=== PATIENT | male | born 1965 | race Caucasian/White ===

== ENCOUNTER 2017-03-08 16:52 | Emergency (ER) | payer BC, OTHER ==
[~2017-03-08] VITALS: Ht 180.3 cm; Wt 114.1 kg
[2017-03-08 16:53] VITALS: TEMP 36.9; Ht 180.3 cm; Wt 114.1 kg
[2017-03-08] MEDS ORDERED: [UNRECOGNIZED DRUG - CODE] INJ (17:23)
--- NOTE | 2017-03-08 17:24 | EMERGENCY ROOM VISIT NOTE ---
History First contact with patient: 16:57 Chief Complaint: EYE ASSESSMENT Stated Complaint: CHANGES IN VISION IN LEFT EYE History of Present Illness The patient is a 51 year old male who presents to the Emergency Room via private vehicle with complaints of "changes in vision in left eye". The patient states that he was driving last night, and felt that the vision in his left eye was not as well as was in the past. He also noticed a darkened region , that was colored light brown and circular in nature in the left central axis of vision. It was small in nature. He also feels that when he looks at text on his phone his left eye seems to bend the text. He wears glasses and not contacts. He also believes that at night he sees blue light instead of white light. He states that his vision does appear to be improving, and they're no longer are visual disturbances that are persistent. He notes that now if he closes either is a small [place], but it quickly disappears. He denies any flashes of light in his eyes, speech troubles, weakness, eye pain or trauma. Review of Systems A complete 6-point Review of Systems was discussed with the patient, with pertinent positives and negatives listed in the History of Present Illness. All remaining Review of Systems questions can be considered negative unless otherwise specified. Past Medical/Surgical History No pertinent past medical history. Family History No pertinent family history. Social History Smoking Status: Current Every Day Smoker Social History: Patient is a [employer] professor Current/Historical Medications Scheduled Cetirizine (Zyrtec), 10 MG PO DAILY Golimumab (Simponi), 100 MG INJ MONTHLY Methotrexate (Methotrexate), 15 MG PO WK Omeprazole (Prilosec), 20 MG PO DAILY Tamsulosin Hcl (Flomax), 0.4 MG PO DAILY Scheduled PRN Cromolyn Sodium (Ophth) (Opticrom Oph), 1 DROPS OP QID PRN for ALLERGIC REACTION Allergies Coded Allergies: Aspirin (Verified Allergy, Unknown, sob, 03/08/17) Penicillins (Verified Allergy, Unknown, sob, 03/08/17) Physical Exam Vital Signs Date Time Temp Pulse Resp B/P Pulse Ox O2 Delivery O2 Flow Rate FiO2 03/08/17 17:32 85 18 115/78 95 Room Air 03/08/17 16:53 36.9 97 18 146/89 95 Room Air Right Eye Acuity: 20/40 Left Eye Acuity: 20/25 Physical Exam VITAL SIGNS - Vital signs and nursing notes were reviewed. Vital signs stable, hypertensive. GENERAL -51-year-old male appearing his stated age. Communicates well with provider and answers questions appropriately. HEAD - Normocephalic, Atraumatic. No Xie's Sign or Raccoon's Eyes. No depressed skull fractures palpable. EYES - PERRL with EOMI bilaterally. Sclera without noticeable foreign body or excoriations. No injection noted in the left eye. Without subconjunctival hemorrhage. Palpebral conjunctiva pink and moist with no injection or discharge noted. Brief fundoscopic exam demonstrates no AV-nicking, cotton wool spots, or flame hemorrhages. EARS - No deformities of external structures noted on gross examination bilaterally. Handle of malleus, umbo, cone of light, pars tensa/flaccid all easily visualized. NOSE - Midline and without cyanosis. Without discharge. MOUTH/OROPHARYNX - Without perioral cyanosis. Tongue midline with equal elevation of palate bilaterally. No tonsillar hypertrophy, erythema, or exudates noted. Good dentition noted. NECK - FROM assessed. No cervical lymphadenopathy noted. Medical Decision & Procedures Medical Decision Patient was seen and evaluated as above. He presents to us today with visual disturbances of which are now nearly completely resolved. Examination is otherwise unremarkable. No evidence of CVA or TIA. I do believe that consult ophthalmology at this time is warranted. At 5:11 PM I spoke with Dr. Rogers, on- call mica plate layer. We discussed that at this time immediate examination by an eye doctor is likely not necessary, and that he may follow-up in the outpatient setting by obtaining an eye exam at a later date. The patient does not have any established eye doctors in the area, therefore I will encourage him to call Dr. Rogers's office first thing tomorrow morning. The patient was fully educated upon worrisome symptoms in which to return the emergency Department. He was educated upon management, follow-up, had questions prior to discharge and was discharged home in good condition. In the evaluation and treatment of this patient, the following differential diagnoses were considered: Corneal Abrasion, Conjunctivitis, Eye Contusion, Globe Injury, Orbital Floor Injury (Blowout Fracture), Corneal Ulcer, Keratitis , Herpes Zoster Opthalmic, Blepharitis, Orbital Cellulitis, Iritis, Scleritis/ Episcleritis, Uveitis, vitreous separation, Temporal Arteritis, Subconjunctival Hemorrhage, among others. Impression Primary Impression: Visual disturbance Departure Information Dispostion Home / Self-Care Condition GOOD Referrals Ney Moreno M.D. (PCP) Jared Rogers MD Patient Instructions My [facility] Additional Instructions You were seen in the emergency Department for vision changes in your left eye. I have spoken with the on-call mica plate layer, Dr. Rogers about your symptoms. At this time we believe that you may be followed up with an mica plate layer/ convolute tube winder by calling their office tomorrow. Fortunately, at this time we do not suspect any emergent cause that would require surgery today. If you develop worsening symptoms, or speech troubles, weakness, worsening vision changes or persistent spots please return immediately. If he develop loss of peripheral vision, disturbance like a rainstorm, or flashes of light in your eye please return immediately. Thank you for your time.
[2017-03-08] MEDS ORDERED: METH2.5T PO (17:25)
[2017-03-08] MEDS ORDERED: PRLSR20 PO (17:27)
[2017-03-08] MEDS ORDERED: CETI10TA84 PO (17:27)
[2017-03-08] MEDS ORDERED: TAMS0.4C38 PO (17:28)
[2017-03-08] MEDS ORDERED: OPTOPS OP (17:30)
[2017-03-08 17:32] VITALS: BP 115/78; PULSE 85; O2SAT 95
== END 2017-03-08 17:35 | disposition home or self-care (01) ==
LOC: C.EDB 16:53 → C.EDD 17:35
DX: H53.9 Unspecified visual disturbance (principal); Z79.899 Other long term (current) drug therapy; F17.200 Nicotine dependence, unspecified, uncomplicated

== ENCOUNTER → 2017-06-04 | Outpatient (CLI) | payer BC ==
[~2017-06-04] MED LIST: CETI10TA84 PO; CLIN150C PO; METH2.5T PO; OPTOPS OP; PRLSR20 PO; TAMS0.4C38 PO; [UNRECOGNIZED DRUG - CODE] INJ
--- NOTE | 2017-06-04 16:48 | DIAGNOSTIC IMAGING REPORT ---
KUB CLINICAL HISTORY: 51 years-old Male presenting with renal calculus, benign prostatic hyperplasia. TECHNIQUE: Single supine view of the abdomen was obtained. COMPARISON: None. FINDINGS: No calcification projects over the kidneys allowing for the presence of stool and gas. No calcification projects along the courses of the ureters bilaterally. Few pelvic phleboliths noted. Mild stool burden throughout the colon. Nonobstructive bowel gas pattern. No gross pneumoperitoneum. Osseous structures intact. IMPRESSION: 1. No convincing evidence of renal calculus. Electronically signed by: Iban Herrera M.D. 06/04/2017 4:46 PM Dictated Date/Time: 06/04/2017 4:45 PM
--- NOTE | 2017-06-04 16:49 | DIAGNOSTIC IMAGING REPORT ---
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 Subcortical cystic changes are seen within the carpus, notably the lunate and capitate. Mild triscaphe the and first carpal metacarpal degenerative changes are noted. No evidence of erosive arthropathy. Mild degenerative changes of the interphalangeal joints also noted. Negative for opaque foreign body. IMPRESSION: 1. No acute bony abnormality or evidence of erosive arthropathy. 2. Mild bone demineralization is present with degenerative changes about the carpus, interphalangeal joints and first carpometacarpal joint. The above report was generated using voice recognition software. It may contain grammatical, syntax or spelling errors. Electronically signed by: Matt Palafox M.D. 06/04/2017 4:47 PM Dictated Date/Time: 06/04/2017 4:45 PM
--- NOTE | 2017-06-04 16:49 | DIAGNOSTIC IMAGING REPORT ---
RIGHT FOOT MIN 3 VIEWS ROUTINE CLINICAL HISTORY: 51 years-old Male presenting with arthritis in the hands and feet. TECHNIQUE: Frontal, oblique, and lateral views the right foot were obtained. COMPARISON: None. FINDINGS: Os peroneum noted. No significant degenerative joint disease. Calcification noted at the distal Achilles tendon, possibly suggesting prior injury or chronic degeneration. Small bone spur at the origin of the plantar fascia. No acute fracture or malalignment. IMPRESSION: No acute osseous injury of the right foot. No significant degenerative joint disease. Suspected prior injury or chronic degeneration of the Achilles tendon. Electronically signed by: Iban Herrera M.D. 06/04/2017 4:48 PM Dictated Date/Time: 06/04/2017 4:46 PM
--- NOTE | 2017-06-04 16:56 | DIAGNOSTIC IMAGING REPORT ---
RIGHT HAND MIN 3 VIEWS ROUTINE HISTORY: 51 years-old Male INTERMEDIATE USE OF MEDICATION chronic right hand pain with history of arthritis. History of psoriasis. COMPARISON: Left hand radiographs of same day TECHNIQUE: 3 views of the right hand FINDINGS: No acute fracture or dislocation is identified. Exuberant marginal spurring is seen involving several of the metacarpal and interphalangeal joints, notably the second and third metacarpal phalangeal and third DIP joint. There are probable small central and marginal erosions present within the metacarpal phalangeal joints, notably at the second and third digit and also within the PIP joint of the third digit. Subcortical cystic changes are seen within the metacarpal heads. There is mild soft tissue swelling of the digits. Negative for radiopaque foreign body. IMPRESSION: 1. No acute fracture or dislocation. 2. Mild erosive arthropathy as above, notably within the second and third digits with associated proliferative changes is compatible with patient's reported diagnosis of psoriatic arthropathy. The above report was generated using voice recognition software. It may contain grammatical, syntax or spelling errors. Electronically signed by: Matt Palafox M.D. 06/04/2017 4:55 PM Dictated Date/Time: 06/04/2017 4:52 PM
--- NOTE | 2017-06-04 17:06 | DIAGNOSTIC IMAGING REPORT ---
LEFT FOOT MIN 3 VIEWS ROUTINE CLINICAL HISTORY: 51 years-old Male presenting with pauciarticular psoriatic arthritis, arthritis in the hands and feet. TECHNIQUE: Frontal, oblique, and lateral views of the left foot were obtained. COMPARISON: Comparison made to plain radiographs of the right foot performed the same day. FINDINGS: Os peroneum noted. Accessory navicular also noted. No significant degenerative change of the joints. No erosions are evident. Osteopenia may be present. No acute fracture or malalignment. Calcification within the Achilles tendon may suggest prior injury or chronic degeneration. Small bone spur at the inferior calcaneus. IMPRESSION: No acute osseous injury of the left foot. No significant degenerative joint disease. Calcification within the Achilles tendon may suggest prior injury or chronic degeneration. Electronically signed by: Iban Herrera M.D. 06/04/2017 5:04 PM Dictated Date/Time: 06/04/2017 5:02 PM
== END | disposition home or self-care (01) ==
LOC: C.LAB1850 15:17
PROVIDERS: ATTEND Internal Medicine Rheumatology
DX: L40.50 Arthropathic psoriasis, unspecified (principal); Z79.899 Other long term (current) drug therapy; N20.0 Calculus of kidney; N40.0 Benign prostatic hyperplasia without lower urinary tract symptoms; M67.872 Other specified disorders of synovium, left ankle and foot

== ENCOUNTER 2017-07-24 09:57 | Emergency (ER) | payer BC ==
[~2017-07-24] VITALS: Ht 180.3 cm; Wt 114.6 kg
[~2017-07-24 09:57] MED LIST changes: -CLIN150C PO
[2017-07-24 10:20] VITALS: BP 136/95; PULSE 78; TEMP 37.7; O2SAT 95; Ht 180.3 cm; Wt 114.6 kg
--- NOTE | 2017-07-24 11:22 | EMERGENCY ROOM VISIT NOTE ---
History Report prepared by Won: Karishma Kuhn Under the Supervision of: Dr. Eligio Liu M.D. First contact with patient: 10:43 Chief Complaint: NASAL PAIN/INJURY Stated Complaint: RIGHT NOSTRIL INFECTION, HEADACHE History of Present Illness The patient is a 51 year old white male with a past medical history of psoriatic arthritis who presents to the ED with a cc of right sided nasal pain beginning 2 days ago. He initially thought that he had a pimple on the right side of his nose. He is now experiencing redness and swelling of his nose, as well as pain and pressure around his right eye. Positive headache, low-grade fever, rhinorrhea, facial pain. Negative chills, visual symptoms, trauma. He rates his pain as a 5/10 in severity. He has been taking ibuprofen for pain. He recently had a similar infection on his neck. He took azithromycin at that time and those symptoms resolved. The patient takes MTX and Simponi for his arthritis. He follows up with a temperature logging operator. Pt denies recent changes to medications. Source of History: patient Onset: 2 days ago Position: nose Symptom Intensity: 5/10 Quality: pressure Timing: worsening Modifying Factors (Relieving): ibuprofen Associated Symptoms: + fevers, + headache, No chills Note: Pt notes rhinorrhea and facial pain. Denies visual symptoms and trauma Review of Systems See HPI for pertinent positives and negatives. A total of six systems were reviewed and were otherwise negative. Past Medical & Surgical Medical Problems: (1) Depression (2) Psoriatic arthritis Family History Patient reports no known family medical history. Social History Smoking Status: Current Some Day Smoker Alcohol Use: occasionally Marital Status: single Housing Status: lives alone Occupation Status: employed Current/Historical Medications Scheduled Cetirizine (Zyrtec), 10 MG PO DAILY Golimumab (Simponi), 100 MG INJ MONTHLY Methotrexate (Methotrexate), 15 MG PO WK Omeprazole (Prilosec), 20 MG PO DAILY Tamsulosin Hcl (Flomax), 0.4 MG PO DAILY Scheduled PRN Cromolyn Sodium (Ophth) (Opticrom Oph), 1 DROPS OP QID PRN for ALLERGIC REACTION Allergies Coded Allergies: Aspirin (Verified Allergy, Unknown, sob, 07/24/17) Penicillins (Verified Allergy, Unknown, sob, 07/24/17) Physical Exam Vital Signs Date Time Temp Pulse Resp B/P (MAP) Pulse Ox O2 Delivery O2 Flow Rate FiO2 07/24/17 10:20 37.7 78 20 136/95 95 Room Air Physical Exam GENERAL: Awake, alert, well-appearing, NAD HENT: Normocephalic, atraumatic. Redness to the nose, mild blanching. Pt does have a small scab in the anterior right interior nares, no bleeding, mild erythema to the mucosal tissues, scant drainage, not purulent. No facial swelling. EYES: Normal conjunctiva. Sclera non-icteric. No periorbital edema, no proptosis. NECK: Supple. No nuchal rigidity. FROM. RESPIRATORY: CTAB, no rhonchi, wheezing, crackles CARDIAC: RRR, no MRG ABDOMEN: Soft, NTND, BS+ MSK: No chest wall TTP, no LE edema NEURO: GCS 15, CN 2-12 intact, moves all 4s on command SKIN: No rash or jaundice noted. Medical Decision & Procedures ED Course 1046: The patient was evaluated in room C5. A complete history and physical exam was performed. At this time I discussed the results and treatment plan with the patient. I answered all pertaining questions that he had. He expressed understanding and verbalized agreement. The patient will be discharged home. Medical Decision The patient is a 51 year old white male with a past medical history of psoriatic arthritis who presents to the ED with a cc of right sided nasal pain beginning 2 days ago. Differential diagnosis: Etiologies such as cellulitis, abscess, MRSA infection, DVT, necrotizing fasciitis, dermatitis, drug eruption, as well as others were entertained.. Patient was seen and evaluated at the bedside. Patient was complaining some mild right-sided naris pain. Upon visualization patient did have a small area of scabbing. Patient otherwise had some mild redness to the mucosa. Patient does not have any drainage. Patient was not proptotic not have any periorbital swelling concerning for orbital or preseptal cellulitis. Patient had a vision changes. Patient was given a protrusion for Augmentin and told to follow-up with his PCP. Patient reported care was safely discharged home. Medication Reconcilliation Current Medication List: was personally reviewed by me Blood Pressure Screening Patient's blood pressure: Elevated blood pressure Blood pressure disposition: Elevated BP felt to be situational Impression Primary Impression: Cellulitis Scribe Attestation The scribe's documentation has been prepared under my direction and personally reviewed by me in its entirety. I confirm that the note above accurately reflects all work, treatment, procedures, and medical decision making performed by me. Departure Information Dispostion Home / Self-Care Prescriptions Clindamycin Hcl (CLEOCIN) 150 Mg Cap 450 MG PO QID for 7 Days, #84 CAP Prov: Eligio Liu M.D. 07/24/17 Referrals Ney Moreno M.D. (PCP) Patient Instructions Cellulitis Dc, My [facility] Additional Instructions Please return to the emergency department if you have worsening or recurrent symptoms not amenable to at-home treatment. Please call for a follow-up appointment with her primary care physician. Please take your medications as prescribed. If you have other concerns and/or complaints please feel free to also call your primary care physician's office or return the ED for further evaluation, management, and treatment. Take you antibiotics as prescribed. You may take 600 mg Ibuprofen every 6 hours as needed for pain with food for no more than 2 consecutive days. You may take tylenol 1000mg every 6 hours as needed for pain. You may take motrin and tylenol separately or at the same time. You have been examined and treated today on an emergency basis only. This is not a substitute for, or an effort to provide, complete comprehensive medical care. It is impossible to recognize and treat all injuries or illnesses in a single emergency department visit. It is therefore important that you follow up closely with [facility]. Call as soon as possible for an appointment. Thank you for your time and consideration. I look forward to speaking with you again soon. Please don't hesitate to call us if you have any questions. Problem Qualifiers Primary Impression: Cellulitis Site of cellulitis: face Qualified Codes: L03.211 - Cellulitis of face
[2017-07-24] MEDS ORDERED: CLIN150C PO (11:27)
== END 2017-07-24 11:46 | disposition home or self-care (01) ==
LOC: C.EDB 09:58 → C.EDC 11:46
DX: L03.211 Cellulitis of face (principal); L40.50 Arthropathic psoriasis, unspecified; F32.9 Major depressive disorder, single episode, unspecified; F17.210 Nicotine dependence, cigarettes, uncomplicated; Z79.899 Other long term (current) drug therapy